=== PATIENT | female | born 1960 ===

== ENCOUNTER → 2020-10-05 09:06 | Outpatient (BNVA) | payer OTHER, SELFPAY | PROVIDERS: PCP Family Medicine; Referring Provider Family Medicine; Visit Provider Student in an Organized Health Care Education/Training Program | DX: Z76.89 Persons encountering health services in other specified circumstances (principal) ==

== ENCOUNTER 2020-12-13 10:24 | Outpatient (REF) | payer OTHER, SELFPAY ==
--- NOTE | ~2020-12-13 | MM_ITS ---
EXAMINATION: MM SCREENING DIGITAL BREAST TOMOSYNTHESIS, BILATERAL CLINICAL INFORMATION: Screening. Asymptomatic. The lifetime risk of breast cancer based on the Tyrer-Cuzick Model is 8%. COMPARISON: Mammography: 06/03/2019, 01/24/2018, 10/11/2016 TECHNIQUE: Digital breast tomosynthesis is performed in both the craniocaudal and mediolateral oblique views along with computer-aided detection (CAD). Synthesized 2D images are generated from the tomosynthesis. FINDINGS: There are scattered areas of fibroglandular density (ACR BI-RADS breast composition Category b). There are no significant masses, abnormal calcifications, or other abnormalities. The axilla and skin contours are unremarkable. MM/MM tomosynthesis screening BI IMPRESSION: No mammographic evidence of malignancy. ASSESSMENT: BI-RADS 1: Negative RECOMMENDATION: Routine annual mammography screening. This patient's information was entered into a reminder system with a target due date for their next mammogram.
== END 2020-12-13 10:25 | disposition home or self-care (01) ==
LOC: HO.MAMMO 10:24
PROVIDERS: PCP Family Medicine; Visit Provider Family Medicine
DX: Z12.31 Encounter for screening mammogram for malignant neoplasm of breast (principal)
CPT/HCPCS: 77063; 77067

== ENCOUNTER 2020-12-29 08:38 | Outpatient (REF) | payer OTHER, SELFPAY ==
--- NOTE | 2020-12-29 09:00 | PFT_ITS ---
INDICATION: Scleroderma. SPIROMETRY: The FEV1 to FVC of 82% with an FEV1 of 2.36 L, which is 35% predicted, and an FVC of 2.84 L, which is 78% predicted. No significant response to bronchodilators noted. Maximum voluntary ventilation 96% predicted. LUNG VOLUMES: Total lung capacity 79% predicted and diffusion capacity of 77% predicted. COMPARISONS: PFTs from November 2019. INTERPRETATION: No obstructive ventilatory defect. No significant response to bronchodilators noted. The patient does have a mild restrictive ventilatory defect of unclear etiology, could be related to her scleroderma. In addition to that, the patient does have a mild diffusion impairment. When compared to 2019, there is a trend improvement in the FVC, trend improvement in the FEV1. No significant change in the total lung capacity, and a trend improvement in the diffusion capacity. Clinical correlation warranted. MD JONY Conley/LORI / [id number]
== END 2020-12-29 08:39 | disposition home or self-care (01) ==
LOC: HO.RESP 08:38
PROVIDERS: PCP Family Medicine; Visit Provider Student in an Organized Health Care Education/Training Program
DX: J84.10 Pulmonary fibrosis, unspecified (principal); M34.9 Systemic sclerosis, unspecified
CPT/HCPCS: 94060; 94727; 94729

== ENCOUNTER → 2021-01-21 08:01 | Outpatient (BNVA) | payer OTHER, SELFPAY | PROVIDERS: PCP Student in an Organized Health Care Education/Training Program; Visit Provider Student in an Organized Health Care Education/Training Program | DX: M34.9 Systemic sclerosis, unspecified (principal); R91.1 Solitary pulmonary nodule | CPT/HCPCS: 99212 ==

== ENCOUNTER 2021-01-31 11:16 | Day surgery (SDC) | payer OTHER, SELFPAY ==
--- NOTE | 2021-01-28 13:48 | HO.ANESPROP2 ---
Documented by User: Lorin Gamble 01/28/21 13:53 HPI - Anesthesia Eval Consult details Narrative: 60yo F for Upper Endoscopy with Balloon Dilitation [facility] Active Problems Active Problems: All Active Problems (Updated 01/28/21 @ 11:03 by Ada Owens RN) Lung nodule (Acute) Scleroderma (Acute) Past Medical History Medical History (Updated 01/28/21 @ 11:03 by Ada Owens RN) GERD (gastroesophageal reflux disease) High cholesterol HTN (hypertension) Lung nodule Migraine Scleroderma Social History Social History Alcohol intake: never Smoking Status: Former smoker Years Smoked: 10 Smoked in Last 30 Days: No Advance Directives: No Advance Directives Information Provided: Yes Recently lost weight without trying: No Meds Allergies Allergy/AdvReac Type Severity Reaction Status Date / Time No Known Allergies Allergy Verified 01/21/21 08:07 [No Known Allergies*] Home Medications Medication Instructions Recorded Confirmed Last Taken Type aspirin 325 mg tablet 325 mg PO DAILY PRN 10/05/20 01/24/21 History docusate potassium 100 mg capsule mg PO 10/05/20 Unknown History lactobacillus combination no.8 3 3,000 mmu cells PO DAILY 10/05/20 Unknown History billion cell capsule lisinopril 10 mg tablet 10 mg PO DAILY 10/05/20 01/31/21 History multivitamin 1 tab PO DAILY 10/05/20 Unknown History simvastatin 40 mg tablet 40 mg PO DAILY 10/05/20 Unknown History Exam Exam Date and Time: January 28, 2021 1348 Narrative Narrative: Echo 05/2020 Normal BiV function No significant valve disease or pericard ds Mild increase in LV wall thickness Assessment and Plan Assessment Anesthesia Assessment: Chart Reviewed Documented by User: Eunice Ruiz 01/31/21 11:38 PMFSH Past Medical History Medical History (Updated 01/28/21 @ 11:03 by Ada Owens RN) GERD (gastroesophageal reflux disease) High cholesterol HTN (hypertension) Lung nodule Migraine Scleroderma Social History Social History Alcohol intake: never Smoking Status: Former smoker Years Smoked: 10 Smoked in Last 30 Days: No Advance Directives: No Advance Directives Information Provided: Yes Recently lost weight without trying: No Meds Allergies Allergy/AdvReac Type Severity Reaction Status Date / Time No Known Allergies Allergy Verified 01/21/21 08:07 [No Known Allergies*] Home Medications Medication Instructions Recorded Confirmed Last Taken Type aspirin 325 mg tablet 325 mg PO DAILY PRN 10/05/20 01/24/21 History docusate potassium 100 mg capsule mg PO 10/05/20 Unknown History lactobacillus combination no.8 3 3,000 mmu cells PO DAILY 10/05/20 Unknown History billion cell capsule lisinopril 10 mg tablet 10 mg PO DAILY 10/05/20 01/31/21 History multivitamin 1 tab PO DAILY 10/05/20 Unknown History simvastatin 40 mg tablet 40 mg PO DAILY 10/05/20 Unknown History Exam Airway Mallampati Class: II (Multiple caps throughout) TM Dist: >3cm Neck ROM: Full Heart: rRR Lungs: CTA BL Assessment and Plan Assessment Anesthesia Assessment: Anesthesia Plan Discussed and Chart Reviewed Final Anesthetic Review NPO: Yes (Sip water with med) ASA Class: II Final Preanesthetic Review: No Changes in Pt Med Stat and Consent Obtained/Reviewed Patient Risk: Intermediate Procedure Risk: Intermediate Anesthetic Plan Anesthetic Plan: MAC: Disposition: Standard PACU
[2021-01-31 11:27] VITALS: BMI 27.1
[2021-01-31 11:43] VITALS: BP 131/77; PULSE 68; RESP 16; TEMP 36.8; O2SAT 98
[2021-01-31] MEDS: Lactated Ringers 1,000 ML 100 ML IVCONT (12:00)
[2021-01-31 13:55] VITALS: BP 107/70; PULSE 62; RESP 16; TEMP 37.6; O2SAT 98
--- NOTE | 2021-01-31 14:00 | PM.OP ---
Brief Operative Note Date of Service: 01/31/21 Pre-op diagnosis: Dysphagia, Screening Post-op diagnosis: other (Hiatal hernia, Nonobstructing distal esophageal ring, R/O EOE, Colon polyp) Procedure: EGD with Balloon dilation with an 18 and a 20mm balloon, and biopsies, Colonoscopy to the cecum and TI with biopsy and removal of polyp Surgeon: Roldan Wagner Anesthesia: MAC Estimated blood loss (mL): 4.0 Pathology: other (A. Esophagus at 25cm B. Transverse colon polyp) Condition: stable Disposition: PACU
[2021-01-31 14:10] VITALS: BP 97/70; PULSE 57; RESP 18; TEMP 37.2; O2SAT 98
--- NOTE | 2021-01-31 15:04 | OP_ITS ---
SURGEON: Roldan Wagner MD INDICATIONS: The patient presents for evaluation of gastroesophageal reflux, dysphagia, and colorectal cancer screening. Full consent has been obtained from her for this, including risks of bleeding and perforation. PREOPERATIVE DIAGNOSIS: POSTOPERATIVE DIAGNOSIS: PROCEDURE PERFORMED: Esophagogastroduodenoscopy with balloon dilation of gastroesophageal junction and biopsies, and colonoscopy to cecum and terminal ileum with biopsy and removal of polyp. ESTIMATED BLOOD LOSS: COMPLICATIONS: ANESTHESIA: Monitored anesthesia care. ASSISTANTS: SPECIMENS: PREOPERATIVE DIAGNOSES: Gastroesophageal reflux, dysphagia, and colorectal cancer screening. POSTOPERATIVE DIAGNOSES: Gastroesophageal reflux, dysphagia, and colorectal cancer screening, hiatal hernia, nonobstructing distal esophageal ring, rule out eosinophilic esophagitis, colon polyp, diverticulosis and internal hemorrhoids. DESCRIPTION OF PROCEDURE: The patient was placed in the left lateral decubitus position. The Olympus video gastroscope was passed in the posterior oropharynx and upper esophagus under direct vision. The scope was passed slowly into the distal esophagus. The gastroesophageal junction appeared at 35 cm. There was no sign of any esophagitis nor Goodwin's mucosa. There did appear to be a nonobstructing esophageal ring right above the hiatal hernia. The scope easily passed this. The hiatal hernia was small to moderate in size. The hiatal hernia mucosa appeared normal. The scope was advanced to pylorus and the duodenum was cannulated to the descending portion. The duodenum including the bulb appeared normal without mass or ulceration. The scope was withdrawn back in the stomach. The gastric antrum and body appeared normal with good peristalsis. Scope was retroflexed visualizing the proximal stomach carefully, which appeared normal, without any sign of mass or ulceration. The scope was straightened and withdrawn back into the esophagus. Given her symptomatology, I used a [employer] incremental balloon to dilate the gastroesophageal junction and nonobstructing esophageal ring from an 18 mm to a 20 mm balloon at the recommended pressure for between 30 and 60 seconds each. There was really no heme noted post-dilation. The esophagus was carefully inspected and appeared normal. There was no sign of any significant dilatation. Peristalsis appeared to be fairly normal. Biopsies were obtained at 25 cm. The scope was then withdrawn from the patient. She was turned around for colonoscopy. The digital rectal exam revealed no abnormalities. The Olympus video pediatric colonoscope was entered into the rectum and advanced easily to the cecum. Once in the cecum, I did identify normal-appearing cecal pouch with appendiceal orifice and a normal-appearing ileocecal valve. The terminal ileum was cannulated and appeared normal. The scope was withdrawn back in the colon. The entire cecum and ileocecal valve appeared normal. There was transillumination of light deep in the right lower quadrant. The scope was then slowly withdrawn assessing all mucosal surfaces carefully. For the most part, preparation was very good throughout the colon, although there were some small areas of liquid stool, which were suctioned and irrigated away as best as possible. In the transverse colon, was a flat approximately 4 mm polyp, which was biopsied and completely removed with cold biopsy forceps. I did not visualize any other polyps, colitis, nor angiodysplasia. There was a mild amount of sigmoid diverticulosis. In the rectum, scope was retroflexed visualizing internal hemorrhoids, but no other pathology. The rectal mucosa appeared normal. The scope was straightened out and withdrawn from the patient. She tolerated the procedures well and was returned to the recovery area in stable condition. IMPRESSION: 1. Small colon polyp, status post biopsy and removal. 2. Diverticulosis. 3. Internal hemorrhoids. 4. Hiatal hernia. 5. Nonobstructing distal esophageal ring, status post balloon dilation. 6. Rule out eosinophilic esophagitis. PLAN: The results of the biopsies will be checked. She will continue her daily omeprazole. If the colon polyp is a tubular adenoma, I would recommend a followup colonoscopy in 5 years. If it is only hyperplastic, I would recommend a followup colonoscopy in 10 years. She was advised not to use any aspirin and NSAIDs for 1 week. She was advised to see me in 2 to 3 months for a followup office visit as well. If the dysphagia remains a significant problem, we can then proceed with esophageal motility studies to see if there is any evidence of a scleroderma-associated esophageal motility disorder. MD LISA Bellamy/LORI / [id number]
== END 2021-01-31 14:42 | disposition home or self-care (01) ==
PROVIDERS: PCP Family Medicine; Visit Provider Internal Medicine
PROC: (CPT 45380; principal; 2021-01-31 11:40)
PROC: 0DJD8ZZ Inspection of Lower Intestinal Tract, Via Natural or Artificial Opening Endoscopic (ICD-10-PCS; CPT 45378; 2021-01-31 11:40)
DX: Z12.11 Encounter for screening for malignant neoplasm of colon (principal); D12.3 Benign neoplasm of transverse colon; K57.30 Diverticulosis of large intestine without perforation or abscess without bleeding; K64.8 Other hemorrhoids; R13.10 Dysphagia, unspecified; K22.8 Other specified diseases of esophagus; K21.9 Gastro-esophageal reflux disease without esophagitis; K44.9 Diaphragmatic hernia without obstruction or gangrene; I10 Essential (primary) hypertension; R91.1 Solitary pulmonary nodule; M34.9 Systemic sclerosis, unspecified; Z79.899 Other long term (current) drug therapy; Z79.82 Long term (current) use of aspirin; Z87.891 Personal history of nicotine dependence
CPT/HCPCS: 45380; 43249; 43239; 88305; C1726

== ENCOUNTER 2021-04-29 07:09 | Outpatient (REF) | payer OTHER, SELFPAY ==
[2021-04-29 08:59] LABS: MANUAL DIFF FLAG NO
[2021-04-29 09:04] LABS: Glucose Urine UA NEG (NEG); Leukocyte Esterase Urine NEG (NEG); Nitrite Urine NEG (NEG); PH 6.5 (5.0-8.0); Specific Gravity - Urine 1.015 (1.005-1.025); Urine Blood NEG (NEG); Urine Ketones NEG (NEG); Urine Protein NEG (NEG-TRACE)
[2021-04-29 09:06] LABS: Appearance Urine CLEAR; Color Urine YELLOW
[2021-04-29 09:09] LABS: Basophils Percent Auto 0.9 % (0-2); Eosinophils Absolute Auto 0.1 X10*3/uL (0.0-0.4); Eosinophils Percent Auto 1.3 % (0-4); Imm Gran Abs Auto 0.01 X10*3/uL (0.00-0.03); Imm Gran Pct Auto 0.2 % (0.0-0.4); Lymphocytes Absolute Auto 0.9 X10*3/uL (1.2-4.9); Lymphocytes Percent Auto 19.8 % (20-40); Mean Corpuscular HGB Conc 32.6 g/dl (31.0-35.0); Mean Corpuscular Hemoglobin 29.4 pg (27.0-33.0); Mean Corpuscular Volume 90.1 fL (80-98); Mean Platelet Volume 9.6 fL (9.4-12.3); Monocytes Absolute Auto 0.6 X10*3/uL (0.1-1.2); Monocytes Percent Auto 13.3 % (2-11); Neutrophils Absolute Auto 2.9 X10*3/uL (2.0-8.3); Neutrophils Percent Auto 64.5 % (45-73); Platelet Count 249 X10*3/uL (160-400); Red Blood Count 4.77 X10*6/uL (4.20-5.50); Red Cell Distribution Width 12.6 % (11.0-16.0); White Blood Count 4.5 X10*3/uL (4.8-10.8)
[2021-04-29 09:19] LABS: Mucus Urine TRACE /LPF; RBC Urine 0-2 /HPF (0); Squamous Epithelial Cell Urine TRACE /LPF; WBC Urine 0-2 /HPF (0-4)
[2021-04-29 09:23] LABS: Alanine Aminotransferase 17 U/L (0-31); Albumin Level 4.4 g/dL (3.5-5.0); Alkaline Phosphatase 52 U/L (39-117); Anion Gap 14 (12-20); Aspartate Amino Transferase 21 U/L (5-31); Bilirubin Total 0.6 mg/dL (0.0-1.0); Blood Urea Nitrogen 14 mg/dL (9-16); Calcium 10.1 mg/dL (8.4-10.2); Carbon Dioxide 27 mmol/L (22-29); Chloride 106 mmol/L (96-108); Estimated Glomerular Filt Rate > 60; Glucose Random 120 mg/dL (60-115); Potassium 5.3 mmol/L (3.3-5.1); Sodium 142 mmol/L (135-145); Total Protein 6.8 g/dL (6.5-8.0)
[2021-04-29 10:19] LABS: Erythrocyte Sedimentation Rate 4 MM/HR (0-20)
== END 2021-04-29 07:10 | disposition home or self-care (01) ==
LOC: HO.LAB 07:09
PROVIDERS: PCP Family Medicine; Visit Provider Student in an Organized Health Care Education/Training Program
DX: M34.9 Systemic sclerosis, unspecified (principal); R91.1 Solitary pulmonary nodule
CPT/HCPCS: 36415; 80053; 81001; 85025; 85652; 86140; 99212

== ENCOUNTER 2022-01-03 15:50 | Outpatient (REF) | payer OTHER, SELFPAY ==
--- NOTE | ~2022-01-03 | MM_ITS ---
EXAMINATION: MM SCREENING DIGITAL BREAST TOMOSYNTHESIS, BILATERAL CLINICAL INFORMATION: Screening. Asymptomatic. The lifetime risk of breast cancer based on the Tyrer-Cuzick Model is 9%. COMPARISON: Mammography: 08/12/2021, 06/03/2019, 01/24/2018 TECHNIQUE: Digital breast tomosynthesis is performed in both the craniocaudal and mediolateral oblique views along with computer-aided detection (CAD). Synthesized 2D images are generated from the tomosynthesis. FINDINGS: There are scattered areas of fibroglandular density (ACR BI-RADS breast composition Category b). There are no significant masses, abnormal calcifications, or other abnormalities. Parenchymal pattern is similar to prior studies. There are no significant changes. MM/MM tomosynthesis screening BI IMPRESSION: No mammographic evidence of malignancy. ASSESSMENT: BI-RADS 1: Negative RECOMMENDATION: Routine annual mammography screening. This patient's information was entered into a reminder system with a target due date for their next mammogram.
== END 2022-01-03 15:51 | disposition home or self-care (01) ==
LOC: HO.MAMMO 15:50
PROVIDERS: PCP Family Medicine; Visit Provider Family Medicine
DX: Z12.31 Encounter for screening mammogram for malignant neoplasm of breast (principal)
CPT/HCPCS: 77063; 77067

== ENCOUNTER 2022-02-14 14:45 | Outpatient (REF) | payer OTHER, SELFPAY ==
--- NOTE | 2022-02-14 | PFT_ITS ---
Forced vital capacity is 77, slightly reduced, FEV1 81, FEF 25/75 is 86, and MVV 78. Post bronchodilator therapy, no change. Total lung capacity 81 and residual volume 77. Diffusion capacity is 71. CONCLUSION: The pulmonary function test is within normal limits. There is no evidence of obstructive or restrictive pulmonary disease and no response to bronchodilator therapy. There is a slight decrease in FVC and MVV is probably due to suboptimal effort. Clinical correlation recommended. MD PHOENIX Perez/MODL / [id number]
[2022-02-14 16:10] LABS: MANUAL DIFF FLAG NO
[2022-02-14 16:16] LABS: Basophils Absolute Auto 0.1 X10*3/uL (0.0-0.2); Eosinophils Absolute Auto 0.1 X10*3/uL (0.0-0.4); Eosinophils Percent Auto 1.5 % (0-4); Hematocrit 44.2 % (37.0-47.0); Hemoglobin 14.1 g/dl (12.0-16.0); Imm Gran Abs Auto 0.02 X10*3/uL (0.00-0.03); Imm Gran Pct Auto 0.3 % (0.0-0.4); Lymphocytes Absolute Auto 1.5 X10*3/uL (1.2-4.9); Lymphocytes Percent Auto 25.2 % (20-40); Mean Corpuscular HGB Conc 31.9 g/dl (31.0-35.0); Mean Corpuscular Hemoglobin 28.8 pg (27.0-33.0); Mean Corpuscular Volume 90.4 fL (80.0-98.0); Mean Platelet Volume 9.3 fL (9.4-12.3); Monocytes Absolute Auto 0.6 X10*3/uL (0.1-1.2); Monocytes Percent Auto 9.2 % (2-11); Neutrophils Absolute Auto 3.8 x10*3/uL (2.0-8.3); Neutrophils Percent Auto 62.8 % (45-73); Platelet Count 264 X10*3/uL (160-400); Red Blood Count 4.89 X10*6/uL (4.20-5.50); White Blood Count 6.1 X10*3/uL (4.8-10.8)
[2022-02-14 16:32] LABS: Alanine Aminotransferase 16 U/L (0-31); Anion Gap 16 (12-20); Aspartate Amino Transferase 17 U/L (5-31); Blood Urea Nitrogen 15 mg/dL (9-16); Carbon Dioxide 26 mmol/L (22-29); Chloride 104 mmol/L (96-108); Estimated Glomerular Filt Rate > 60; Potassium 4.6 mmol/L (3.3-5.1); Sodium 141 mmol/L (135-145)
[2022-02-14 17:06] LABS: Erythrocyte Sedimentation Rate 5 MM/HR (0-20)
== END 2022-02-14 14:46 | disposition home or self-care (01) ==
LOC: HO.RESP 14:45
PROVIDERS: PCP Family Medicine; Referring Provider Internal Medicine Rheumatology; Visit Provider Family Medicine
DX: I10 Essential (primary) hypertension (principal); E78.00 Pure hypercholesterolemia, unspecified; Z79.899 Other long term (current) drug therapy; M34.9 Systemic sclerosis, unspecified
CPT/HCPCS: 36415; 80051; 82550; 82565; 84450; 84460; 84520; 85025; 85652; 94060; 94727; 94729

== ENCOUNTER 2022-08-29 09:55 | Outpatient (REF) | payer OTHER, SELFPAY ==
[2022-08-29 10:13] LABS: MANUAL DIFF FLAG NO
[2022-08-29 10:43] LABS: Basophils Absolute Auto 0.1 X10*3/uL (0.0-0.2); Eosinophils Absolute Auto 0.1 X10*3/uL (0.0-0.4); Eosinophils Percent Auto 0.9 % (0-4); Hematocrit 43.7 % (37.0-47.0); Hemoglobin 14.3 g/dl (12.0-16.0); Imm Gran Abs Auto 0.01 X10*3/uL (0.00-0.03); Imm Gran Pct Auto 0.2 % (0.0-0.4); Lymphocytes Absolute Auto 1.1 X10*3/uL (1.2-4.9); Lymphocytes Percent Auto 18.8 % (20-40); Mean Corpuscular HGB Conc 32.7 g/dl (31.0-35.0); Mean Corpuscular Hemoglobin 29.2 pg (27.0-33.0); Mean Corpuscular Volume 89.2 fL (80.0-98.0); Mean Platelet Volume 9.8 fL (9.4-12.3); Monocytes Absolute Auto 0.5 X10*3/uL (0.1-1.2); Neutrophils Percent Auto 70.1 % (45-73); Platelet Count 256 X10*3/uL (160-400); Red Cell Distribution Width 12.8 % (11.0-16.0); White Blood Count 5.8 X10*3/uL (4.8-10.8)
[2022-08-29 11:15] LABS: Anion Gap 17 (12-20); Blood Urea Nitrogen 15 mg/dL (9-16); Carbon Dioxide 25 mmol/L (22-29); Chloride 103 mmol/L (96-108); Estimated Glomerular Filt Rate > 60; Potassium 4.6 mmol/L (3.3-5.1); Sodium 140 mmol/L (135-145)
[2022-08-29 11:16] LABS: Erythrocyte Sedimentation Rate 7 MM/HR (0-20)
== END 2022-08-29 09:56 | disposition home or self-care (01) ==
LOC: HO.LAB 09:55
PROVIDERS: PCP Family Medicine; Visit Provider Family Medicine
DX: M34.9 Systemic sclerosis, unspecified (principal); I10 Essential (primary) hypertension
CPT/HCPCS: 36415; 80051; 82565; 84520; 85025; 85652

== ENCOUNTER 2023-03-13 10:28 | Outpatient (REF) | payer OTHER, SELFPAY ==
[2023-03-13 12:09] LABS: Erythrocyte Sedimentation Rate 4 MM/HR (0-20)
[2023-03-13 12:16] LABS: Alanine Aminotransferase 14 U/L (0-31); Anion Gap 11 (12-20); Aspartate Amino Transferase 16 U/L (5-31); Blood Urea Nitrogen 16 mg/dL (9-16); Carbon Dioxide 30 mmol/L (22-29); Chloride 101 mmol/L (96-108); Estimated Glomerular Filt Rate > 60; Sodium 137 mmol/L (135-145)
== END 2023-03-13 10:29 | disposition home or self-care (01) ==
LOC: HO.LAB 10:28
PROVIDERS: PCP Family Medicine; Visit Provider Family Medicine
DX: I10 Essential (primary) hypertension (principal); E78.00 Pure hypercholesterolemia, unspecified; Z79.899 Other long term (current) drug therapy
CPT/HCPCS: 36415; 80051; 82550; 82565; 84450; 84460; 84520; 85652

== ENCOUNTER 2023-04-30 13:58 | Outpatient (REF) | payer OTHER, SELFPAY ==
--- NOTE | ~2023-04-30 | MM_ITS ---
EXAMINATION: MM SCREENING DIGITAL BREAST TOMOSYNTHESIS, BILATERAL CLINICAL INFORMATION: Screening. Asymptomatic. The lifetime risk of breast cancer based on the Tyrer-Cuzick Model is 6%%. COMPARISON: Mammography: This study is compared with prior exams dating back to 2018. TECHNIQUE: Digital breast tomosynthesis is performed in both the craniocaudal and mediolateral oblique views along with computer-aided detection (CAD). Synthesized 2D images are generated from the tomosynthesis. FINDINGS: There are scattered areas of fibroglandular density (ACR BI-RADS breast composition Category b). There are no significant masses, abnormal calcifications, or other abnormalities. MM/MM tomosynthesis screening BI IMPRESSION: No mammographic evidence of malignancy. ASSESSMENT: BI-RADS BI-RADS 1 - Negative RECOMMENDATION: Routine annual mammography screening. 1 year F/U This examination should not preclude the clinical evaluation of a suspicious palpable abnormality. This patient's information was entered into a reminder system with a target due date for their next mammogram.
== END 2023-04-30 13:59 | disposition home or self-care (01) ==
LOC: HO.MAMMO 13:58
PROVIDERS: PCP Family Medicine; Visit Provider Family Medicine
DX: Z12.31 Encounter for screening mammogram for malignant neoplasm of breast (principal)
CPT/HCPCS: 77063; 77067

== ENCOUNTER → 2023-04-30 14:15 | Outpatient (BNV) | payer OTHER, SELFPAY | PROVIDERS: PCP Family Medicine; Visit Provider Radiology Diagnostic Radiology | DX: Z12.31 Encounter for screening mammogram for malignant neoplasm of breast (principal) | CPT/HCPCS: 77063; 77067 ==

== ENCOUNTER 2023-07-10 14:22 | Emergency (ER) | payer OTHER, SELFPAY ==
--- NOTE | ~2023-07-10 | XR_ITS ---
STUDY: LEFT ANKLE AND FOOT INDICATION: Fall TECHNIQUE: 2 view left ankle, 3 view left foot FINDINGS: Arrow points to the medial aspect of the foot/ankle. No fracture or dislocation. Mortise is intact. No ankle or foot focal soft tissue swelling. Bony structures are intact. Alignment and articulations are maintained. Soft tissue calcification identified distal anterior calf. XR/XR foot LT min 3V IMPRESSION: No acute bony pathology left ankle and foot
--- NOTE | ~2023-07-10 | XR_ITS ---
STUDY: LEFT ANKLE AND FOOT INDICATION: Fall TECHNIQUE: 2 view left ankle, 3 view left foot FINDINGS: Arrow points to the medial aspect of the foot/ankle. No fracture or dislocation. Mortise is intact. No ankle or foot focal soft tissue swelling. Bony structures are intact. Alignment and articulations are maintained. Soft tissue calcification identified distal anterior calf. XR/XR ankle LT min 3V IMPRESSION: No acute bony pathology left ankle and foot
--- NOTE | 2023-07-10 14:30 | ED.LOWEXIN ---
HPI - Extremity Injury (Lower) General Chief Complaint: Extremity Injury, Lower Stated Complaint: L ankle pain Time Seen by Provider: 07/10/23 14:45 Source: patient, RN notes reviewed and old records reviewed Mode of arrival: ambulatory Limitations: no limitations History of Present Illness HPI Narrative: 62-year-old female presents for evaluation of left ankle pain. Patient reports that she was walking down the steps outside. She states that somebody across the street yelled out to the patient ?turned around to see what was going on. And she reports she fell and twisted her left ankle She denies hitting her head or losing consciousness She also suffered an abrasion to the right knee She denies any pain to the right knee She reports her pain is worse the left ankle with ambulation Related Data Home Medications Medication Instructions Recorded Confirmed aspirin 325 mg tablet 325 mg PO DAILY PRN Headache 10/05/20 docusate potassium 100 mg capsule mg PO 10/05/20 lactobacillus combination no.8 3 3,000 mmu cells PO DAILY 10/05/20 billion cell capsule (Adult Probiotic) lisinopril 10 mg tablet 10 mg PO DAILY 10/05/20 multivitamin 1 tab PO DAILY 10/05/20 simvastatin 40 mg tablet 40 mg PO DAILY 10/05/20 Previous Rx's Medication Instructions Recorded omeprazole 40 mg capsule,delayed 40 mg PO DAILY #90 caps 01/21/21 release Allergies Allergy/AdvReac Type Severity Reaction Status Date / Time No Known Allergies Allergy Verified 04/29/21 07:15 [No Known Allergies*] Review of Systems Constitutional: Constitutional: Denies chills and Denies fever(s) Eyes: Eyes: Denies blurry vision ENT: Denies sore throat Cardiovascular: Cardiovascular: Denies chest pain and Denies dyspnea Respiratory: Respiratory: Denies cough and Denies dyspnea Gastrointestinal: Gastrointestinal: Denies abdominal pain Musculoskeletal: Musculoskeletal: Reports arthralgias, Reports joint swelling, Reports limited range of motion and Reports stiffness PMFSH Past Medical History Medical History GERD (gastroesophageal reflux disease) High cholesterol HTN (hypertension) Lung nodule Migraine Scleroderma Social History Social History (Updated 04/29/21 @ 07:20 by Dat Rees LPN) Alcohol intake: never Patient Tobacco Use Status: Former Tobacco user Tobacco use type: Cigarette Cigarettes Per Day: 2 Years Smoked: light smoker on and off for 8 years e-Cigarette/Vaping Use: Never Used Advance Directives: Yes Advance Directives on File: Yes Advance Directives Date on File: 01/31/21 Physical Exam Vital Signs: Vital Signs: Last Vital Signs Temp 98.2 F 07/10/23 14:31 Pulse 79 07/10/23 14:31 Resp 18 07/10/23 14:31 BP 154/96 H 07/10/23 14:31 Pulse Ox 97 07/10/23 14:31 O2 Del Method Room Air 07/10/23 14:31 BMI result Body Mass Index 25.5 Const: General: healthy appearing, comfortable, no acute distress, alert and awake Nutritional Appearance: well nourished Orientation/consciousness: patient oriented x3 HEENT: Head: Yes normocephalic and Yes atraumatic Eyes: Eyelids: Yes eyelids normal Conjunctivae: conjunctivae normal Sclerae: sclerae normal Corneas: corneas normal Pupils: Equal, round and reactive pupils present EOM: EOMs intact bilaterally Neck: Neck: Yes full ROM Resp: Effort & Inspection: normal respiratory effort, able to speak in complete sentences and not labored Cardio: Rate: regular rate Rhythm: regular rhythm Skin: Other: Mild abrasion to the right knee General skin exam: elasticity normal Neuro: General: patient oriented x3 Cranial nerves: Yes Equal, round and reactive pupils present and Yes Bilaterally intact EOM present Cognition (Neuro): normal cognition Extrem: Other: There is mild edema to the left lateral ankle. Patient has tenderness to the left lateral talofibular ligament. No specific lateral malleolus tenderness. Patient's Achilles tendon appears intact on palpation has no calf tenderness. Negative Sims test. No left medial malleolus tenderness either. Patient has full range of motion of flexion-extension of the right knee. Course Course Course Narrative: RME: 62-year-old female with a past medical history of scleroderma, Raynaud's, presenting to the ED complaining of left ankle pain/swelling and right knee pain s/p mechanical trip and fall down 1 step at home around 11:00. Denies head trauma or LOC has been ambulatory with pain since incident Left ankle noted swelling and mild tenderness. Neurovascular intact. Right knee with abrasion and swelling X-rays ordered Full HPI, ROS and PE to be performed by primary ED provider. Medical Decision Making Medical Decision Making [facility] Narrative: 62-year-old female presents for evaluation of left ankle pain after a trip and fall. She denies hitting her head or losing consciousness. Denies syncopal episode. Plan for x-ray left ankle and foot. Differential Diagnosis Differential Diagnoses: The differential diagnosis associated with the presentation includes Ankle sprain Ankle fracture Foot sprain Foot fracture Independent Interpretation I performed an independent interpretation of an: Plain X-Ray (No obvious fracture of the left foot or ankle) Radiology Impression Discussion of test interpretation with radiology: I have reviewed the radiologist's reading. (No acute bony pathology left ankle and foot) Discharge Plan Discharge Clinical Impression: Ankle sprain and strain Patient Disposition: Home, Self-Care Instructions: Ankle Sprain (ED) Additional Instructions: Your x-rays and not show any fracture. Elevate the foot above your heart while resting Use ibuprofen for pain Ice the area every 4 hours for the next 3-4 days Follow-up with your primary doctor Prescriptions: No Action omeprazole 40 mg capsule,delayed release(DR/EC) 40 mg PO DAILY Qty: 90 1RF docusate potassium 100 mg capsule PO simvastatin 40 mg tablet 40 mg PO DAILY lisinopril 10 mg tablet 10 mg PO DAILY multivitamin Tablet 1 tab PO DAILY Adult Probiotic 3 billion cell capsule 3,000 mmu cells PO DAILY Rx Instructions: administer with a meal aspirin 325 mg tablet 325 mg PO DAILY PRN (Reason: Headache)
[2023-07-10 14:31] VITALS: BP 154/96; PULSE 79; RESP 18; TEMP 36.8; O2SAT 97; BMI 25.5
== END 2023-07-10 16:13 | disposition home or self-care (01) ==
PROVIDERS: Emergency Provider Student in an Organized Health Care Education/Training Program; PCP Family Medicine
DX: S93.402A Sprain of unspecified ligament of left ankle, initial encounter (principal); S96.912A Strain of unspecified muscle and tendon at ankle and foot level, left foot, initial encounter; S80.211A Abrasion, right knee, initial encounter; W10.8XXA Fall (on) (from) other stairs and steps, initial encounter; Z87.891 Personal history of nicotine dependence; Y93.9 Activity, unspecified; Y92.019 Unspecified place in single-family (private) house as the place of occurrence of the external cause; Y99.9 Unspecified external cause status
CPT/HCPCS: 73610; 73630; 99282; 99283

== ENCOUNTER 2023-10-15 12:16 | Outpatient (REF) | payer MEDICARE, OTHER, SELFPAY ==
[2023-10-15 12:47] LABS: MANUAL DIFF FLAG NO
[2023-10-15 14:00] LABS: Anion Gap 12 (12-20); Blood Urea Nitrogen 10 mg/dL (9-16); Carbon Dioxide 28 mmol/L (22-29); Chloride 100 mmol/L (96-108); Estimated Glomerular Filt Rate > 60; Potassium 4.6 mmol/L (3.3-5.1); Sodium 135 mmol/L (135-145)
[2023-10-15 14:18] LABS: Basophils Absolute Auto 0.1 X10*3/uL (0.0-0.2); Eosinophils Absolute Auto 0.1 X10*3/uL (0.0-0.4); Eosinophils Percent Auto 0.9 % (0-4); Hematocrit 42.7 % (37.0-47.0); Hemoglobin 14.1 g/dl (12.0-16.0); Imm Gran Abs Auto 0.02 X10*3/uL (0.00-0.03); Imm Gran Pct Auto 0.3 % (0.0-0.4); Lymphocytes Absolute Auto 1.3 X10*3/uL (1.2-4.9); Lymphocytes Percent Auto 18.3 % (20-40); Mean Corpuscular Hemoglobin 29.3 pg (27.0-33.0); Mean Corpuscular Volume 88.8 fL (80.0-98.0); Mean Platelet Volume 9.5 fL (9.4-12.3); Monocytes Absolute Auto 0.7 X10*3/uL (0.1-1.2); Monocytes Percent Auto 10.1 % (2-11); Neutrophils Absolute Auto 4.9 x10*3/uL (2.0-8.3); Neutrophils Percent Auto 69.4 % (45-73); Platelet Count 287 X10*3/uL (160-400); Red Blood Count 4.81 X10*6/uL (4.20-5.50); Red Cell Distribution Width 12.8 % (11.0-16.0)
== END 2023-10-15 12:17 | disposition home or self-care (01) ==
LOC: HO.LAB 12:16
PROVIDERS: PCP Family Medicine; Visit Provider Family Medicine
DX: I10 Essential (primary) hypertension (principal); M34.9 Systemic sclerosis, unspecified
CPT/HCPCS: 36415; 80051; 82565; 84520; 85025

== ENCOUNTER → 2023-11-13 12:21 | Outpatient (REF) | payer MEDICARE, SELFPAY ==
--- NOTE | 2023-11-13 12:24 | CA_ITS ---
Transthoracic Echocardiogram Patient (Last, First, Middle): Hazel Myles, Gender: Female Date of : 1960 Age: 63 Procedure Date: 11/13/2023 Procedure Type: Transthoracic Echocardiogram Location: OP Height: 170.18 cm Weight: 73.94 kg BSA: 1.85 m2 Heart Rate: 55 bpm BP: 150 / 85 mmHg Training And Development Project Leader: GINGER Referring MD: Wilfred Pérez MD Symptoms: R93.1 ABNORMAL DIUAG IMAG HEART ,CIR CIRC, ELEV RSVP M34.81 SCLEROSIS Study Quality: Fair ECG Rhythm: Bradycardia Conclusions: - The left ventricular systolic function is normal. The calculated ejection fraction is 58% by biplane method. - The apical inferior, basal inferior, and mid inferoseptal segments are hypokinetic. - No obvious valvular pathology seen on this study. Findings Left Ventricle Normal left ventricular cavity size. There is normal left ventricular wall thickness. The left ventricular systolic function is normal. The calculated ejection fraction is 58% by biplane method. Diastolic function is normal for age. LV peak GLS -19.7%. Wall Motion Rest Echo Findings The apical inferior, basal inferior, and mid inferoseptal segments are hypokinetic. Right Ventricle Normal right ventricular cavity size and systolic function. Atria Both atria are normal in size. Aortic Valve There is a normal trileaflet aortic valve. There is no aortic valve stenosis. There is no aortic valve regurgitation. Mitral Valve The mitral valve appears normal. There is no mitral valve regurgitation. There is no mitral valve stenosis. Pulmonic Valve The pulmonic valve is likely normal. Tricuspid Valve Normal tricuspid valve structure. There is mild tricuspid valve regurgitation. There is no evidence of pulmonary hypertension. Great Vessels The asc aorta is normal in size. Venous The inferior vena cava is normal in size and collapses less than 50% with inspiration. Pericardium/Pleural There is no evidence of pericardial effusion. Recommendations, Care & Conclusions No obvious valvular pathology seen on this study. Measurements 2D Linear Measurements IVSd: 0.98 0.6-0.9/0.6-1.0 cm LVIDd: 4.05 3.9-5.3/4.2-5.9 cm LVIDd Index: 2.19 2.4-3.2/2.2-3.1 cm/m2 LVIDs: 2.00 2.0-3.6 cm LVPWd: 0.79 0.7-1.1 cm LA Diam: 3.00 2.7-3.8/3.0-4.0 cm LAIDs Index: 1.62 1.5-2.3 cm/m2 LV Mass: 136.04 67-162/88-224 g LV Mass Index: 73.54 43-95/49-115 g/m2 LVOT Diam: 1.80 3.0+(-)1.3 cm 2D Systolic Function EF 4C: 55.50 >55% EF 2C: 59.80 >55% EF BiP: 57.90 >55% Mitral Valve MV Pk E: 0.93 MV PK A: 0.64 MV Decel Time: 211.00 E/A: 1.50 E'Lateral: 9.68 E'Medial: 6.64 E/E' Med: 14.00 E/E' Lat: 9.60 PHT: 62.00 MVA PHT: 3.55 Decel [place]: 4.40 Aortic Valve AoV Pk Baudilio: 1.15 AoV Mn Baudilio: 0.84 AoV VTI: 0.29 AoV Pk Grad: 5.00 Aov Mn Grad: 3.00 ELIZABETH Cont.VTI: 1.69 LVOT LVOT Pk Baudilio: 0.83 LVOT Mn Baudilio: 0.58 LVOT VTI: 0.19 LVOT Pk Grad: 3.00 LVOT Mn Grad: 2.00 LVOT Diam: 1.80 LVOT Area: 2.54 Diastolic Function MV Pk E: 0.93 MV Pk A: 0.64 E/A: 1.50 E'Medial: 6.64 E/E' Med: 14.00 E' Laterial: 9.68 E/E' Lat: 9.60 Right Ventricle TAPSE (mm): 23.80 TVS' Baudilio: 11.40 Tricuspid Valve TR Pk Baudilio: 2.22 TR Pk Grad: 20.00 RA Press: 8.00 RVSP: 28.00 Great Vessels Aorta Sinus of Valsalva: 3.40 2.0-3.5 cm Ao Asc: 3.60 2.1-3.4 cm Pulmonary Valve PV Pk Baudilio: 1.06 Peak PV Grad: 4.00 Updated in Other Vendor System with Status of Final Eric Levy MD electronically signed on 11/14/2023 11:26:25 AM with status of Final
== END ==
LOC: HO.CARD 12:21
PROVIDERS: PCP Family Medicine; Visit Provider Family Medicine
DX: M34.81 Systemic sclerosis with lung involvement (principal); R93.1 Abnormal findings on diagnostic imaging of heart and coronary circulation
CPT/HCPCS: 93306; 93356

== ENCOUNTER → 2023-11-13 12:24 | Outpatient (BNV) | payer MEDICARE, SELFPAY | PROVIDERS: PCP Family Medicine; Visit Provider Internal Medicine | DX: I36.1 Nonrheumatic tricuspid (valve) insufficiency (principal); R93.1 Abnormal findings on diagnostic imaging of heart and coronary circulation | CPT/HCPCS: 93306 ==

== ENCOUNTER 2024-01-29 08:40 | Outpatient (REF) | payer MEDICARE, SELFPAY ==
[2024-01-29 09:56] LABS: Erythrocyte Sedimentation Rate 7 MM/HR (0-20)
[2024-01-29 10:04] LABS: Alanine Aminotransferase 16 U/L (0-31); Aspartate Amino Transferase 16 U/L (5-31); C Reactive Protein < 0.10 mg/dL (< or = 0.50)
[2024-01-29 10:07] LABS: Ferritin 43 ng/mL (10-250)
== END 2024-01-29 08:41 | disposition home or self-care (01) ==
LOC: HO.LAB 08:40
PROVIDERS: PCP Family Medicine; Visit Provider Family Medicine
DX: E78.00 Pure hypercholesterolemia, unspecified (principal); Z79.899 Other long term (current) drug therapy
CPT/HCPCS: 36415; 82550; 82728; 84450; 84460; 85652; 86140

== ENCOUNTER 2024-04-03 08:01 | Outpatient (REF) | payer MEDICARE, SELFPAY ==
--- NOTE | ~2024-04-03 | CT_ITS ---
EXAMINATION: CT CHEST WITHOUT CONTRAST CLINICAL INFORMATION: Pulmonary fibrosis. COMPARISON: CT chest 12/26/2021, 12/31/2020 and 05/07/2019. Chest radiograph 05/06/2019. TECHNIQUE: Multidetector volumetric CT imaging of the chest was done. Axial MIP volume rendering provided. Sagittal and coronal reformatted images were obtained. This CT examination was performed using dose optimization techniques as appropriate, variously including the following: *Automated exposure control *Adjustment of mA and/or kV according to patient size (this includes techniques or standardized protocols for targeted exams where dose is matched to indication/reason for exam; i.e. extremities or head) *Use of iterative reconstruction technique DLP: 129 mGy-cm FINDINGS: LUNGS: Again seen is scarring in the left upper lobe with a spiculated component which appears unchanged compared to the 12/26/2021 study. Because of its irregular shape, measurements are difficult. Maximal dimensions are 1.6 x 0.9 cm compared with 1.7 x 1.0 cm previously (6:49 compare prior 5:66). There certainly has been no increase in this opacity. A perifissural 3 mm right lobe opacity adjacent to the minor fissure is unchanged (6:89 compare prior 5:127). No new, increasing sized or concerning nodule is seen. No significant emphysematous changes are seen. There is mild bronchial thickening. There is no evidence to suggest the presence of interstitial lung disease or fibrosis. MEDIASTINUM: Calcified mediastinal and hilar lymph nodes are seen. No adenopathy. CORONARY ARTERY CALCIFICATION: Moderate. PLEURA: There is no pleural effusion. No pleural mass or thickening. AXILLA: No lymphadenopathy. UPPER ABDOMEN: Unremarkable. OSSEOUS STRUCTURES: Unremarkable. CT/CT chest wo IV con IMPRESSION: 1. No evidence of interstitial lung disease or fibrosis. 2. Stable left upper lobe spiculated opacity. 3. Stable 3 mm right upper lobe perifissural nodule. 4. Calcified mediastinal and hilar lymph nodes. 5. Moderate coronary artery calcifications. Fleischner guidelines were followed.
== END 2024-04-03 08:02 | disposition home or self-care (01) ==
LOC: HO.CT 08:01
PROVIDERS: PCP Family Medicine; Visit Provider Family Medicine
DX: M34.81 Systemic sclerosis with lung involvement (principal); J84.10 Pulmonary fibrosis, unspecified
CPT/HCPCS: 71250

== ENCOUNTER 2024-05-05 13:48 | Outpatient (REF) | payer MEDICARE, SELFPAY | END 2024-05-05 13:49 | disposition home or self-care (01) | LOC: HO.MAMMO 13:48 | PROVIDERS: PCP Family Medicine; Visit Provider Family Medicine | DX: Z12.31 Encounter for screening mammogram for malignant neoplasm of breast (principal) | CPT/HCPCS: 77063; 77067 ==

== ENCOUNTER → 2024-05-05 14:00 | Outpatient (BNV) | payer MEDICARE, SELFPAY | PROVIDERS: PCP Family Medicine; Visit Provider Radiology Diagnostic Radiology | DX: Z12.31 Encounter for screening mammogram for malignant neoplasm of breast (principal) | CPT/HCPCS: 77063; 77067 ==

== ENCOUNTER 2024-05-12 11:20 | Outpatient (REF) | payer MEDICARE, SELFPAY ==
[2024-05-12 12:04] LABS: Alanine Aminotransferase 15 U/L (0-31); Anion Gap 14 (12-20); Aspartate Amino Transferase 19 U/L (5-31); Blood Urea Nitrogen 9 mg/dL (9-16); Carbon Dioxide 28 mmol/L (22-29); Chloride 102 mmol/L (96-108); Estimated Glomerular Filt Rate > 60; Potassium 4.5 mmol/L (3.3-5.1); Sodium 139 mmol/L (135-145)
== END 2024-05-12 11:21 | disposition home or self-care (01) ==
LOC: HO.LAB 11:20
PROVIDERS: PCP Family Medicine; Visit Provider Family Medicine
DX: I10 Essential (primary) hypertension (principal); E78.00 Pure hypercholesterolemia, unspecified; Z79.899 Other long term (current) drug therapy
CPT/HCPCS: 36415; 80051; 82550; 82565; 84450; 84460; 84520

== ENCOUNTER 2025-01-26 10:18 | Outpatient (REF) | payer MEDICARE, SELFPAY ==
[2025-01-26 11:27] LABS: Alanine Aminotransferase 18 U/L (0-31); Anion Gap 12 (12-20); Aspartate Amino Transferase 17 U/L (5-31); Blood Urea Nitrogen 13 mg/dL (9-16); Carbon Dioxide 29 mmol/L (22-29); Chloride 104 mmol/L (96-108); Estimated Glomerular Filt Rate > 60; Potassium 4.7 mmol/L (3.3-5.1); Sodium 140 mmol/L (135-145)
--- OUTSIDE RECORDS SUMMARY | 2025-01-26 11:32 | XMS_ITS | Patient Health Record ---
Author Organization [facility] Address [address] [place] [address] Care Team Providers Care Business Communications Instructor Name Role Phone Beto BALTAZAR, Wilfred Primary Care Provider UnavailRoldan Milton Unavailable [phone] Allergies No Known Allergies Reason For Referral No Information Medications Medication SIG (Take, Route, Fr equency, Duration) Notes Start Date End Date Status Multivitamin Adult A ctive Simvastatin 40 MG TAKE 1 TABLET BY ELAINE TH AT BEDTIME DIRECTED Oral for 30 Active Colace Active Probiotic Active Omeprazole 40 MG TAKE 1 CAPSULE BY MO UTH EVERY DAY DIRECTED Oral for 30 Active Lisinopril 10 MG TAKE 1 TABLET BY ELAINE TH EVERY DAY Oral for 30 Active Immunizations Vaccine Route Administration Date Status Comme nts Influenza Unknown 06/29/2020 Administered Social History Tobacco Use: Social History Observation Description Date Details (start date - stop date) Never Smoker NA - NA Tobacco Use/Smoking Question Answer Notes Patient is a nonsmoker Alcohol Screen Question Answer Notes Did you have a drink containing alcohol in the p ast year? No Points 0 Interpretation Negative Section Notes: Nonsmoker; no sig alcohol Nonsmoker; no sig alcohol Problems Problem Type SNOMED Code ICD Code Onset Dates Problem Status W/U Status Risk Notes Problem Screening for malignant neoplasm of colon (940138880) Encounter for screening for malignant neoplasm of colon (Z12.11) Active confirmed Problem Dysphagia (76582414) Dysphagia, unspecified (R13.10) Active confirmed Problem Gastroesophageal reflux disease (938154199) GERD (gastroesophag eal reflux disease) (K21.9) Active confirmed Problem 864940663 Hx of adenomatous colonic polyps (Z86.010) Active confirmed Plan Of Treatment Pending Test Test Name Order Date Pathology 01/31/2021 Future Test Test Name Order Date UPPER GI ENDOSCOPY BALLOOON DILATION OF ESOPH 01/25/2021 COLONOSCOPY 01/25/2021 Insurance Providers Payer Name Payer Address Payer Phone Subscriber Number Group Number Insured Name Patient Relationship to Insured Coverage Start Date Coverage End Date [facility] [address] [address] [place], [place] [phone] [id number] KIRK WEBER Self - patient is the insured Medical (General) History Medical History History ICD Code Hypertension Denies [place],DM,CVA,Lung disease,renal dise ase GERD--upper endoscopy in Jan revealed a moderate sized hiatal hernia with a mild nonobstructing distal esophageal ring-this was dilated with a 20 mm balloon--proximal esophageal biopsies were negative for eosinophilic esophagitis and there was no evidence of any Goodwin's esophagus Hx of Migraines Reports scleroderma--sees Dr Natalya Jimenez--Raynaud's, ? CREST; ? of Sjogren's with dry mouth Negative incomplete colonoscopy and BE a t [facility] in 2009 Lung nodule--s/p mediastinoscopy Hyperlipidemia Colonoscopy in January of 2021 revealed a small tubular adenoma that was removed Surgical History Surgery Date(Month/Year) Mediastinoscopy
== END 2025-01-26 10:19 | disposition home or self-care (01) ==
LOC: HO.LAB 10:18
PROVIDERS: PCP Family Medicine; Visit Provider Family Medicine
DX: I10 Essential (primary) hypertension (principal); E78.00 Pure hypercholesterolemia, unspecified; Z79.899 Other long term (current) drug therapy
CPT/HCPCS: 36415; 80051; 82550; 82565; 84450; 84460; 84520

== ENCOUNTER 2025-04-27 08:30 | Outpatient (REF) | payer MEDICARE, SELFPAY ==
--- OUTSIDE RECORDS SUMMARY | 2025-04-27 08:40 | XMS_ITS | Patient Health Record ---
Author Organization [facility] Address [address] [place] [address] Care Team Providers Care Human Resource Advisor Name Role Phone Beto BALTAZAR, Wilfred Primary Care Provider UnavailRoldan Milton Unavailable [phone] Allergies No Known Allergies Reason For Referral [...] Problem Screening for malignant neoplasm of colon (106616946) Encounter for screening for malignant neoplasm of colon (Z12.11) Active confirmed Problem Dysphagia (57632642) Dysphagia, unspecified (R13.10) Active confirmed Problem Gastroesophageal reflux disease (669568232) GERD (gastroesophag eal reflux disease) (K21.9) Active confirmed Problem 387377706 Hx of adenomatous colonic polyps (Z86.010) Active confirmed Plan Of Treatment Pending Test Test Name Order Date Pathology 01/31/2021 Future Test Test Name Order Date UPPER GI ENDOSCOPY BALLOOON DILATION OF ESOPH 01/25/2021 COLONOSCOPY 01/25/2021 Insurance Providers Payer Name Payer Address Payer Phone Subscriber Number Group Number Insured Name Patient Relationship to Insured Coverage Start Date Coverage End Date [facility] [address] [address] [place], [place] [phone] [id number] KIRK WEBER Self - patient is the insured Medical (General) History Medical History History ICD Code Hypertension Denies [place],DM,CVA,Lung disease,renal dise ase GERD--upper endoscopy in Jan [...]
[2025-04-27 10:23] LABS: Cholesterol 183 mg/dL (<200); HDL Cholesterol 51 mg/dL (>40); LDL Cholesterol Calculated 112 mg/dL (<100); Triglycerides 102 mg/dL (<150)
== END 2025-04-27 08:31 | disposition home or self-care (01) ==
LOC: HO.LAB 08:30
PROVIDERS: PCP Family Medicine; Visit Provider Family Medicine
DX: E78.00 Pure hypercholesterolemia, unspecified (principal)
CPT/HCPCS: 36415; 80061

== ENCOUNTER 2025-05-11 13:53 | Outpatient (REF) | payer MEDICARE, SELFPAY ==
--- OUTSIDE RECORDS SUMMARY | 2025-05-11 15:10 | XMS_ITS | Patient Health Record ---
Author Organization [facility] Address [address] [place] [address] Care Team Providers Care Oil Well Fishing Tool Operator Name Role Phone Beto (RETIRED) Wilfred BALTAZAR Primary Care Provider Unavailable Roldan Wagner Unavailable [phone] Allergies No Known Allergies Reason For Referral [...] Problem Screening for malignant neoplasm of colon (535106813) Encounter for screening for malignant neoplasm of colon (Z12.11) Active confirmed Problem Dysphagia (64886059) Dysphagia, unspecified (R13.10) Active confirmed Problem GERD (gastroesophagea l reflux disease) (K21.9) Active confirmed Problem 482743014 Hx of adenomatous colonic polyps (Z86.010) Active confirmed Plan Of Treatment Pending Test Test Name Order Date Pathology 01/31/2021 Future Test Test Name Order Date UPPER GI ENDOSCOPY BALLOOON DILATION OF ESOPH 01/25/2021 COLONOSCOPY 01/25/2021 Insurance Providers Payer Name Payer Address Payer Phone Subscriber Number Group Number Insured Name Patient Relationship to Insured Coverage Start Date Coverage End Date [facility] [address] [address] [place], [place] [id number] KIRK WEBER Self - patient is the insured Medical (General) History Medical History History ICD Code Hypertension Denies [place],DM,CVA,Lung disease,renal dise ase GERD--upper endoscopy in Jan [...]
--- OUTSIDE RECORDS SUMMARY | 2025-05-11 15:10 | XMS_ITS | Patient Health Record ---
Author Organization [facility] Address [address] [place] [address] Care Team Providers Care Senior Mechanical Designer Name Role Phone Wilfred Pérez MD Primary Care Provider Unavailab Jo Gutierrez Unavailable [phone] Allergies Allergen (clinical drug ingredient) Drug/Non Drug Allergy documented on EMR Reaction Allergy Type Onset Date Status mold (uncoded) congestion, hoarseness, headache Allergy Active Reason For Referral No Information Medications Medication SIG (Take, Route, Fr equency, Duration) Notes Start Date End Date Status Lisinopril 5 MG i tablet Orally once a day Active Simvastatin 40 MG 1 tablet Orally once a day Active Problems Problem Type SNOMED Code ICD Code Onset Dates Problem Status W/U Status Risk Notes Problem Frostbite (84879100) Frostbite (991.2) Active confirmed Problem Raynaud's disease (disorder) (844911465) Raynaud's Syndrome (443.0) Active confirmed Plan Of Treatment No Information Insurance Providers Payer Name Payer Address Payer Phone Subscriber Number Group Number Insured Name Patient Relationship to Insured Coverage Start Date Coverage End Date [facility] [address] [facility] [id number] Hazel Myles Self - patient is the insured Medical (General) History Medical History History ICD Code High blood pressure Raynauds syndrome
== END 2025-05-11 13:54 | disposition home or self-care (01) ==
LOC: HO.MAMMO 13:53
PROVIDERS: Absent Provider Physician Assistant; PCP Physician Assistant; Visit Provider Family Medicine
DX: Z12.31 Encounter for screening mammogram for malignant neoplasm of breast (principal)
CPT/HCPCS: 77063; 77067

== ENCOUNTER → 2025-05-11 14:00 | Outpatient (BNV) | payer MEDICARE, SELFPAY | PROVIDERS: Absent Provider Physician Assistant; PCP Physician Assistant; Visit Provider Internal Medicine | DX: Z12.31 Encounter for screening mammogram for malignant neoplasm of breast (principal) | CPT/HCPCS: 77063; 77067 ==

== ENCOUNTER 2025-07-27 09:49 | Outpatient (AMB) | payer MEDICARE, SELFPAY ==
--- NOTE | 2025-07-27 10:04 | MHC.PC.OV ---
Vital Signs 07/27/25 10:11 07/27/25 11:57 Height 5 ft 6 in Weight 76.204 kg BMI 27.1 BP 140/92 H 120/72 Pulse 64 Pulse Source Pulse Oximeter Temp 97.8 F Temp Source Temporal Artery Scan Pulse Oximetry (%) 99 Oxygen Delivery Method Room Air Intake Visit Reasons: 4 MO F/UP - [facility] PT Senior Cytotechnologist Required: No Accompanied by: Self / Same As Patient Allergies No Known Allergies (No Known Allergies*) Allergy (Verified 07/27/25 10:09) Medication List - Last Reconciled 07/27/25 by RAVI Francisco aspirin 325 mg PO DAILY PRN docusate potassium mg PO lactobacillus combination no.8 (Adult Probiotic) 3,000 mmu cells PO DAILY lisinopril 10 mg PO DAILY multivitamin 1 tab PO DAILY omeprazole 40 mg PO DAILY simvastatin 40 mg PO DAILY verapamil ER 120 mg PO DAILY Tobacco use date assessed: 07/27/25 Fall risk assessment: No Falls in past year Last assessed Fall Risk: 07/27/25 Dental Screening Dental Screen Date: 07/27/25 Did you have a dental visit in the last 12 months?: Yes Did you have a dental problem in the last 6 months where you did not have access to dental care?: No Was dental information given to patient?: No HPI HPI Comments History of Present Illness Details 64-year-old female with history of scleroderma, pulmonary fibrosis, dysphagia, hypercholesterolemia, hypertension, GERD, migraines, venous insufficiency, Raynaud's presenting to the office today for management of chronic conditions and to establish care. Former Dr. Pérez patient, last seen several months ago. * prefers [facility] Scleroderma-affecting mouth, lungs/pulmonary fibrosis, dry mouth/eyes, nodular abnormalities on her toes as well as calluses. Some dyspnea, but improving. Following with Dr. Porter [facility]. Was seen this past summer and was told she was stable and symptoms have plateaued. Most recent chest CT negative for evidence of interstitial lung disease or fibrosis showing a stable left upper lobe spiculated opacity and 3 mm right upper lobe perifissural nodule as well as calcified mediastinal and hilar lymph nodes with moderate coronary calcifications. Raynaud's phenomenon-very sensitive to cold temperatures including just holding a soda can. She is on aspirin. Hypercholesterolemia-on simvastatin 40 mg daily. Due for lipid panel Hypertension-on lisinopril 10 mg daily. Blood pressure on recheck 120/72 Migraines- no headache in several years Concerns: None Health Maintenace: Last screening colonoscopy 01/2021, 5 year follow-up advised due to tubular adenoma, Dr. Wagner Last screening mammogram 04/2025, 1 year follow-up ROS: see hpi EXAM: Constitutional - Awake and Alert, No apparent distress Eyes - PERRL Cardiovascular - S1S2, RRR, No edema Respiratory - Normal lung expansion, Normal respiratory effort, No respiratory distress, CTA bilaterally Extremities - no calf tenderness bilaterally, no swelling Skin - Warm/Dry Neurological - Alert & oriented x3 Psychological - Appropriate affect [facility] Medical History (Updated 07/27/25 @ 11:58 by RAVI Francisco) Raynauds syndrome High cholesterol Scleroderma Migraine GERD (gastroesophageal reflux disease) HTN (hypertension) Lung nodule Surgical History History of colonoscopy (~01/31/21) Social [facility] Alcohol intake: never Patient Tobacco Use Status: Former Tobacco user Tobacco use type: Cigarette Cigarettes Per Day: 2 Years Smoked: light smoker on and off for 8 years e-Cigarette/Vaping Use: Never Used Advance Directives Date on File: 01/31/21 service: No Current occupational status: retired Cognitive needs: No Hearing needs: No Vision needs: Yes (Rx glasses) Questionnaire PHQ-9 Over the last 2 weeks, how often have you been bothered by any of the following problems? 1. Little interest or pleasure in doing things: not at all 2. Feeling down, depressed, or hopeless: not at all 3. Trouble falling or staying asleep, or sleeping too much: not at all 4. Feeling tired or having little energy: not at all 5. Poor appetite or overeating: not at all 6. Feeling bad about yourself - or that you are a failure or have let yourself or your family down: not at all 7. Trouble concentrating on things, such as reading the newspaper or watching television: not at all 8. Moving or speaking so slowly that other people could have noticed. Or the opposite - being so fidgety or restless that you have been moving around a lot more than usual: not at all 9. Thoughts that you would be better off or of hurting yourself in some way: not at all Total score: 0 Depression Screening Interpretation: Negative Depression Screening Done: Yes 83890 - PHQ-9 Billing: Yes Source: Developed by Drs. Roldan Marshall, Anjana Jack, Troy Schrader and colleagues, with an educational rosalio from [employer]. Thrive Questionnaire Date Thrive assessed: 07/27/25 I am a: Patient What is your living situation today?: I have a steady place to live Within the past 12 months, did the food you bought not last and you didn't have the money to get more?: Never true Within the past 12 months, did you worry whether your food would run out before you got money to buy more?: Never true Do you have trouble paying for medicines?: No Do you have trouble getting transportation to medical appointments?: No Do you have trouble paying your heating and electricity bill?: No Do you have trouble taking care of your child, family member or friend?: No Do you have trouble with day-to-day activities such as bathing, preparing meals, shopping, managing finances, etc.?: No Are you currently unemployed and looking for a job?: No Are you interested in more education?: No Please select the resources that you would like help with: None THRIVE Score: 0 AUDIT C Alcohol Use Questionnaire (AUDIT-C) 1. How often do you have a drink containing alcohol?: Monthly or less 2. How many drinks containing alcohol do you have on a typical day when you are drinking?: 1 or 2 Total Score: 1 KYLIE-7 AMB Questionnaire KYLIE-7 Date KYLIE - 7 assessed: 07/27/25 Feeling nervous, anxious, or on edge: 0 = Not at all Not being able to stop or control worryin = Not at all Worrying too much about different things: 0 = Not at all Trouble relaxin = Not at all Being so restless that it is hard to sit still: 0 = Not at all Becoming easily annoyed or irritable: 0 = Not at all Feeling afraid as if something awful might happen: 0 = Not at all Total KYLIE-7 score (0-4 normal; 5-9 mild; 10-14 moderate; 15-21 severe): 0 Source: Developed by Drs. Roldan Marshall, Anjana Jack, Troy Schrader and colleagues, with an educational rosalio from [employer]. KYLIE-7 Assessment Billing KYLIE-7 Assessment Tool: KYLIE-7 Assessment 46578 Physical exam (Primary Care) Vital Signs: Last Vital Signs Temp 97.8 F 07/27/25 10:11 Pulse 64 07/27/25 10:11 BP 140/92 H 07/27/25 10:11 Pulse Ox 99 07/27/25 10:11 Oxygen Delivery Method Room Air 07/27/25 10:11 BMI result Body Mass Index 27.1 Tobacco/Smoking Status: Tobacco use Status Tobacco use date assessed 07/27/25 07/27/25 10:15 Patient Tobacco Use Status Former Tobacco user 07/27/25 10:07 Tobacco use type Cigarette 07/27/25 10:07 e-Cigarette/Vaping Use Never Used 07/27/25 10:07 PHQ-9: PHQ-9 Score PHQ-9: Total score 0 07/27/25 10:25 Depression Screening Interpretation: Negative Thrive Assessment: Date of Thrive Assessment Date Thrive assessed 07/27/25 07/27/25 10:15 Coding Level of Care Code New Pt Level 4 (11212) Complex EM visit Add On G2211 Diagnoses Raynauds syndrome I73.00 HTN (hypertension) I10 High cholesterol E78.00 Scleroderma M34.9 Additional Codes KYLIE-7 Assessment Billing - KYLIE-7 Assessment Tool: KYLIE-7 Assessment 11108 ([id number]) PHQ-9 - 75614 - PHQ-9 Billing: Yes ([id number]) Assessment & Plan Assessment & Plan (1) Raynauds syndrome: Code(s): I73.00 - Raynaud's syndrome without gangrene Category: Medical Plan: Trial of verapamil 120 mg XL. Discontinue lisinopril. Check blood pressures at home (2) HTN (hypertension): Code(s): I10 - Essential (primary) hypertension Category: Medical Plan: Stable. See above (3) High cholesterol: Code(s): E78.00 - Pure hypercholesterolemia, unspecified Category: Medical Plan: Reviewed last lipid panel with appropriately controlled LDL. Continue simvastatin (4) Scleroderma: Code(s): M34.9 - Systemic sclerosis, unspecified Category: Medical Plan: Stable. Continue following with the [facility] treatment center Plan Follow-up in the office in 6 months with labs to be completed prior to visit. She is advised to reach out to the office in about 2 weeks with blood pressure readings. Orders: Orders Lipid Panel Today E78.00 - Pure hypercholesterolemia, unspecified, I10 - Essential (primary) hypertension, I73.00 - Raynaud's syndrome without gangrene, M34.9 - Systemic sclerosis, unspecified Liver Panel Today E78.00 - Pure hypercholesterolemia, unspecified, I10 - Essential (primary) hypertension, I73.00 - Raynaud's syndrome without gangrene, M34.9 - Systemic sclerosis, unspecified Vitamin D 25-OH Total Today E78.00 - Pure hypercholesterolemia, unspecified, I10 - Essential (primary) hypertension, I73.00 - Raynaud's syndrome without gangrene, M34.9 - Systemic sclerosis, unspecified Basic Metabolic Panel Today E78.00 - Pure hypercholesterolemia, unspecified, I10 - Essential (primary) hypertension, I73.00 - Raynaud's syndrome without gangrene, M34.9 - Systemic sclerosis, unspecified Medications: New verapamil ER 120 mg PO DAILY 90 caps 0RF
[2025-07-27 10:11] VITALS: BP 140/92; PULSE 64; TEMP 36.6; O2SAT 99; BMI 27.1
--- OUTSIDE RECORDS SUMMARY | 2025-07-27 10:45 | XMS_ITS | Patient Health Record ---
Author Organization [facility] Address [address] [place] [address] Care Team Providers Care Rip Tailer Name Role Phone Wilfred Pérez MD Primary Care Provider Unavailab Jo Gutierrez Unavailable [phone] Allergies Allergen (clinical drug ingredient) Drug/Non Drug [...] Status W/U Status Risk Notes Problem Frostbite (31457370) Frostbite (991.2) Active confirmed Problem Raynaud's disease (disorder) (697975545) Raynaud's Syndrome (443.0) Active confirmed Plan Of Treatment No Information Insurance Providers Payer Name Payer Address Payer Phone Subscriber Number Group Number Insured Name Patient Relationship to Insured Coverage Start Date Coverage End Date [facility] [address] [facility] [address] [phone] [id number] Hazel Myles Self - patient is the insured Medical (General) History Medical History History ICD Code High blood pressure Raynauds syndrome
--- OUTSIDE RECORDS SUMMARY | 2025-07-27 10:45 | XMS_ITS | Patient Health Record ---
Author Organization [facility] Address [address] [place] [address] Care Team Providers Care Manager Database Administration Name Role Phone Beto (RETIRED) Wilfred BALTAZAR Primary Care Provider Unavailable Roldan Wagner Unavailable [phone] Allergies No Known Allergies Reason For Referral [...] Problem Screening for malignant neoplasm of colon (097889312) Encounter for screening for malignant neoplasm of colon (Z12.11) Active confirmed Problem Dysphagia (31153949) Dysphagia, unspecified (R13.10) Active confirmed Problem Gastroesophageal reflux disease (667885764) GERD (gastroesophag eal reflux disease) (K21.9) Active confirmed Problem 123030646 Hx of adenomatous colonic polyps (Z86.010) Active [...] [facility] [address] [address] [place], [place] [phone] [id number] KIRK WEBER Self - patient is the insured Medical (General) History Medical History History ICD Code Hypertension Denies [place],DM,CVA,Lung disease,renal dise ase GERD--upper endoscopy in Jan [...]
[2025-07-27 11:57] VITALS: BP 120/72
== END 2025-07-27 10:36 | disposition home or self-care (01) ==
LOC: HO.HMCHD 09:49
PROVIDERS: PCP Family Medicine; Visit Provider Physician Assistant
DX: I73.00 Raynaud's syndrome without gangrene (principal); I10 Essential (primary) hypertension; E78.00 Pure hypercholesterolemia, unspecified; M34.9 Systemic sclerosis, unspecified

== ENCOUNTER → 2025-07-27 09:49 | Outpatient (BNVA) | payer MEDICARE, SELFPAY | PROVIDERS: PCP Family Medicine; Visit Provider Physician Assistant | DX: I73.00 Raynaud's syndrome without gangrene (principal); I10 Essential (primary) hypertension; E78.00 Pure hypercholesterolemia, unspecified; M34.9 Systemic sclerosis, unspecified; Z79.82 Long term (current) use of aspirin; Z79.899 Other long term (current) drug therapy; Z13.31 Encounter for screening for depression; Z13.39 Encounter for screening examination for other mental health and behavioral disorders | CPT/HCPCS: 96127; 99202 ==